=== PATIENT | male | born 1995 | race Caucasian/White ===

== ENCOUNTER 2018-03-08 03:06 | Emergency (ER) | payer OTHER ==
[~2018-03-08] VITALS: Ht 195.6 cm; Wt 117.9 kg
[~2018-03-08 03:06] MED LIST: Colace100 MG PO; Excedrin Extra1 EACH PO; GAVILAX17 GM PO; Keflex500 MG PO; Miralax17 GM PO; Mupirocin22 GM TOP; Zofran Odt8 MG SL
== END 2018-03-08 05:13 | disposition home or self-care (01) ==
LOC: ER 03:06
DX: S81.831A Puncture wound without foreign body, right lower leg, initial encounter (principal); W22.8XXA Striking against or struck by other objects, initial encounter
CPT/HCPCS: 73590; 90714; 96372; 99283-25

== ENCOUNTER → 2018-04-09 | Outpatient (CLI) | payer OTHER | LOC: LAB SHORT 16:33 → LAB EV 16:33 | DX: L03.119 Cellulitis of unspecified part of limb (principal) | CPT/HCPCS: 87070; 87075; 87077; 87147; 87186; 87205 ==

== ENCOUNTER 2018-04-20 00:17 | Day surgery (SDC) | payer OTHER ==
[2018-04-20] MEDS ORDERED: STOOL SOFTENER100 MG PO (11:10)
[2018-04-20] MEDS ORDERED: AMOCLA500 PO (11:10)
[2018-04-20] MEDS ORDERED: Excedrin Extra1 EACH PO (11:10)
== END 2018-04-20 10:55 | disposition home or self-care (01) ==
LOC: ATC 00:17
DX: L97.819 Non-pressure chronic ulcer of other part of right lower leg with unspecified severity (principal); L03.115 Cellulitis of right lower limb
CPT/HCPCS: 99213

== ENCOUNTER → 2019-10-22 | Outpatient (CLI) | payer SELFPAY ==
[~2019-10-22] MED LIST changes: +AMOCLA500 PO; +STOOL SOFTENER100 MG PO
[2019-10-22 23:40] LABS: Adenovirus F 40/41 Not Detected (NOT DETECT); Astrovirus Not Detected (NOT DETECT); Campylobacter Sp Not Detected (NOT DETECT); Cryptosporidium Not Detected (NOT DETECT); Cyclospora Cayetanensis Not Detected (NOT DETECT); E. Coli O157 Not Detected (NOT DETECT); Entamoeba Histolytica Not Detected (NOT DETECT); Enteroaggregative E. coli-EAEC Not Detected (NOT DETECT); Enteropathogenic E. coli-EPEC Not Detected (NOT DETECT); Enterotoxigenic E. coli-ETEC Not Detected (NOT DETECT); Giardia Lamblia Not Detected (NOT DETECT); Norovirus GI/GII Not Detected (NOT DETECT); Plesiomonas Shigelloides Not Detected (NOT DETECT); Rotavirus A Not Detected (NOT DETECT); Salmonella Sp Not Detected (NOT DETECT); Sapovirus Not Detected (NOT DETECT); Shiga Toxin-prod E. coli-STEC Not Detected (NOT DETECT); Shigella/Enteroin E. coli-EIEC Not Detected (NOT DETECT); Vibrio Cholerae Not Detected (NOT DETECT); Vibrio Sp Not Detected (NOT DETECT); Yersinia Enterocolitica Not Detected (NOT DETECT)
== END | disposition home or self-care (01) ==
LOC: LAB 18:07 → LAB SHORT 18:07 → LAB FUT 10-17 16:10
PROVIDERS: Family Medicine
DX: K59.00 Constipation, unspecified (principal); E03.9 Hypothyroidism, unspecified; R10.84 Generalized abdominal pain
CPT/HCPCS: 0097U; 87338